=== PATIENT | female | born 1930 | race African-American/Black ===

== ENCOUNTER 2021-04-16 17:13 | Emergency (ER) | payer MEDICARE, BC | END 2021-04-16 19:18 | disposition home or self-care (01) | LOC: CSHERS 17:13 | DX: S00.03XA Contusion of scalp, initial encounter (principal); W18.11XA Fall from or off toilet without subsequent striking against object, initial encounter | CPT/HCPCS: 70450; 72125 ==

== ENCOUNTER 2021-12-02 11:41 | Outpatient (CLI) | payer MEDICARE | END 2021-12-02 11:42 | disposition home or self-care (01) | LOC: CSHRAD 11:41 | PROVIDERS: ATTEND Student in an Organized Health Care Education/Training Program | DX: S62.635S Displaced fracture of distal phalanx of left ring finger, sequela (principal); S62.625A Displaced fracture of middle phalanx of left ring finger, initial encounter for closed fracture; M79.89 Other specified soft tissue disorders; R31.0 Gross hematuria; D50.9 Iron deficiency anemia, unspecified | CPT/HCPCS: 36415; 81001; 82728; 83540; 83550; 85025; 87086 ==